=== PATIENT | female | born 1945 | race African-American/Black ===

== ENCOUNTER → 2017-02-21 | Outpatient (CLI) | payer OTHER | LOC: RAD 02:34 | DX: Z12.31 Encounter for screening mammogram for malignant neoplasm of breast (principal) ==

== ENCOUNTER → 2018-04-22 | Outpatient (CLI) | payer OTHER ==
[~2018-04-22] MED LIST: ASPIRIN81 M2 PO; CYMBALTA60 MG PO; ETODOLAC500 MG PO; HYDROXYCHLOROQ200 M1 PO; LISINOPRIL10 MG PO; LOVASTATIN40 MG PO; METHOTREXATE 22.5 MG PO; RANITIDINE HCL300 MG PO; SYNTHROID50 MCG PO; VITAMIN D5000 UNIT PO; ZOLPIDEM TARTRA10 MG PO
== END ==
LOC: RAD 05:29
DX: Z12.31 Encounter for screening mammogram for malignant neoplasm of breast (principal)

== ENCOUNTER → 2020-12-21 | Outpatient (CLI) | payer OTHER | LOC: BC 12:20 | PROVIDERS: ATTEND Internal Medicine | DX: Z12.31 Encounter for screening mammogram for malignant neoplasm of breast (principal); N63.20 Unspecified lump in the left breast, unspecified quadrant; N63.10 Unspecified lump in the right breast, unspecified quadrant ==